=== PATIENT | female | born 1975 | race Caucasian/White ===

== ENCOUNTER 2017-08-17 03:19 | Emergency (ER) | payer SELFPAY ==
[2017-08-17] MEDS ORDERED: Pantoprazole 40 MG Vial IVPUSH ONE (03:37)
[2017-08-17] MEDS ORDERED: Alum Hydrox/Mag Hydrox/Simeth 15 ML, Metoclopramide 5 MG, Lidocaine 2% 5 ML PO ONE ×3 (03:37)
[2017-08-17] MEDS ORDERED: Sodium Chloride 0.9% 2.5 ML Syringe FLUSH PRN (03:37)
[2017-08-17] MEDS ORDERED: Sodium Chloride 0.9% 10 ML Syringe FLUSH PRN (03:37)
[2017-08-17] MEDS ORDERED: Ondansetron 4 MG/2 ML SDV IVPUSH ONE (03:54)
--- NOTE | 2017-08-17 04:04 | EDM.PDOC ---
ED HPI GENERAL MEDICAL PROBLEM - General Chief Complaint: Abdominal Pain Stated Complaint: ABDOMINAL PAIN RADIATING TO BACK Time Seen by Provider: 08/17/17 03:27 - History of Present Illness INITIAL COMMENTS - FREE TEXT/NARRATIVE: HISTORY AND PHYSICAL: History of present illness: The patient is a 42-year-old female with no significant GI cardiac or pulmonary history who presents after awakening while sleeping with epigastric pain which radiated to her back. The patient says she has never had anything like this before and is heart described but it's a boring pain that starts in her upper abdomen and does not localize right or left. It radiates to her back and when she woke up with the discomfort she had some diaphoresis and nausea but no vomiting. The patient says she did not eat anything new or different yesterday and did not take any GI meds for this discomfort prior to coming here. She did take one baby aspirin. The patient says she has no history of food intolerance and had a normal bowel movement yesterday that was not black or bloody and no diarrhea. She did not vomit this evening just had nausea. She has no specific chest pain or shortness of breath. Patient denies any recent history of alcohol use and did not eat incredibly rich diet recently. She has no significant Family history of cardiac disease and she does take control pills and is on her period currently and denies . The patient has no urinary complaints and no flank pain. The patient does have a history of ADHD and takes phentermine for that. Patient says she has a doctor back in [place] where she lives and she is only visiting here Review of systems: As per history of present illness and below otherwise all systems reviewed and negative. Past medical history: As per history of present illness and as reviewed below otherwise noncontributory. Surgical history: As per history of present illness and as reviewed below otherwise noncontributory. Social history: No reported history of drug or alcohol abuse. Family history: As per history of present illness and as reviewed below otherwise noncontributory. Physical exam: Gen.: Well-developed well-nourished female who is nontoxic and able to be up and around in the ED and move easily without discomfort. Vital signs are noted by me. HEENT: Atraumatic, normocephalic, negative for conjunctival pallor or scleral icterus, mucous membranes moist, throat clear, neck supple, nontender, trachea midline. Lungs: Clear to auscultation, breath sounds equal bilaterally, chest nontender. Heart: S1S2, regular rate and rhythm no overt murmurs Abdomen: Soft, nondistended, bowel sounds are normoactive and there is no tympany on percussion. There is mild to moderate tenderness on deep palpation in the epigastrium and right upper quadrant and only minimal tenderness in the left upper quadrant. There is no rebound or guarding Negative for masses or hepatosplenomegaly. Negative for costovertebral tenderness. Pelvis: Stable nontender. Genitourinary: Deferred. Rectal: Deferred. Extremities: Atraumatic, negative for cords or calf pain. Neurovascular unremarkable. Neuro: Awake, alert, oriented. Cranial nerves II through XII unremarkable. Cerebellum unremarkable. Motor and sensory unremarkable throughout. Exam nonfocal. Back: There is no midline back pain or specific flank pain on palpation. Skin: Normal turgor and there is no diaphoresis Diagnostics: EKG CBC CMP amylase lipase troponin H. pylori CT scan of the abdomen and pelvis Therapeutics: IV O2 monitor Protonix Zofran GI cocktail morphine All testing results were discussed with the patient and friend at bedside and the patient says the pain has slightly improved but is not significantly improved. I will go ahead and order a dose of morphine and perform a CT scan of the abdomen and pelvis as of this point the labs have not indicated any significant cause for the discomfort. CT scan results were discussed with the patient including the prominent findings of cholelithiasis as well as all incidental findings. Patient states that currently after the 2 mg morphine she has absolutely no pain and feels great. I've advised her to follow-up with her provider back in [place] when she returns home or one of our clinic providers as this gallbladder problem will return. She is aware of need to eat a low-fat diet. And I will give her prescription for tramadol to use as needed. Impression: Upper abdominal pain/epigastric pain, cholelithiasis with biliary colic improved Definitive disposition and diagnosis as appropriate pending reevaluation and review of above. upper abdominal Pain Score (Numeric/FACES): 9 - Related Data Allergies Allergy/AdvReac Type Severity Reaction Status Date / Time No Known Allergies Allergy Verified 08/17/17 03:27 Home Meds: Home Meds Phentermine 30 mg PO 08/17/17 [History] Past Medical History HEENT History: Reports: None Cardiovascular History: Reports: None Respiratory History: Reports: None Gastrointestinal History: Reports: None Genitourinary History: Reports: None [employer]ER History: Reports: None Musculoskeletal History: Reports: None Neurological History: Reports: None Psychiatric History: Reports: None Endocrine/Metabolic History: Reports: None Dermatologic History: Reports: None - Infectious Disease History Infectious Disease History: Reports: Chicken Pox - Past Surgical History Respiratory Surgical History: Reports: None Female Surgical History: Reports: None Social & Family History - Family History Family Medical History: Noncontributory - Tobacco Use Smoking Status *Q: Never Smoker - Recreational Drug Use Recreational Drug Use: No ED ROS GENERAL - Review of Systems Review Of Systems: ROS reveals no pertinent complaints other than HPI. ED EXAM, GENERAL - Physical Exam Exam: See Below (See dictation) Course - Vital Signs Last Recorded V/S: Last Vital Signs Temp 36.7 C 08/17/17 05:40 Pulse 69 08/17/17 05:40 Resp 15 08/17/17 05:40 BP 102/64 08/17/17 05:40 Pulse Ox 97 08/17/17 05:40 - Orders/Labs/Meds Orders: Active Orders 24 hr Category Date Time Status Cardiac Monitoring [RC] . DIRECTED Care 08/17/17 03:36 Active EKG Documentation Completion [RC] STAT Care 08/17/17 03:36 Active Oxygen Therapy, ED [RC] ASDIRECTED Care 08/17/17 03:36 Active Pulse Oximetry [RC] ASDIRECTED Care 08/17/17 03:37 Active Abdomen Pelvis w Cont [CT] Stat Exams 08/17/17 04:49 Taken Sodium Chloride 0.9% [Saline Flush] Med 08/17/17 03:37 Active 10 ml FLUSH ASDIRECTED PRN Sodium Chloride 0.9% [Saline Flush] Med 08/17/17 03:37 Active 2.5 ml FLUSH ASDIRECTED PRN Saline Lock Insert [OM.PC] Stat Oth 08/17/17 03:36 Ordered Medication Orders Sodium Chloride (Saline Flush) 10 ml FLUSH ASDIRECTED PRN PRN Reason: Keep Vein Open Sodium Chloride (Saline Flush) 2.5 ml FLUSH ASDIRECTED PRN PRN Reason: Keep Vein Open Labs: Laboratory Tests 08/17/17 08/17/17 08/17/17 Range/Units 03:52 03:52 03:52 WBC 8.36 (4.0-11.0) K/uL RBC 4.61 (4.30-5.90) M/uL Hgb 14.4 (12.0-16.0) g/dL Hct 42.1 (36.0-46.0) % MCV 91.3 (80.0-98.0) fL MCH 31.2 (27.0-32.0) pg MCHC 34.2 (31.0-37.0) g/dL RDW Std Deviation 46.5 (28.0-62.0) fl RDW Coeff of Jarred 14 (11.0-15.0) % Plt Count 255 (150-400) K/uL MPV 10.30 (7.40-12.00) fL Neut % (Auto) 42.1 L (48.0-80.0) % Lymph % (Auto) 48.6 H (16.0-40.0) % [place] % (Auto) 6.0 (0.0-15.0) % Eos % (Auto) 3.1 (0.0-7.0) % Baso % (Auto) 0.2 (0.0-1.5) % Neut # (Auto) 3.5 (1.4-5.7) K/uL Lymph # (Auto) 4.1 H (0.6-2.4) K/uL [place] # (Auto) 0.5 (0.0-0.8) K/uL Eos # (Auto) 0.3 (0.0-0.7) K/uL Baso # (Auto) 0.0 (0.0-0.1) K/uL Nucleated RBC % 0.0 /100WBC Nucleated RBCs # 0 K/uL Sodium 141 (136-145) mmol/L Potassium 3.7 (3.5-5.1) mmol/L Chloride 105 (98-107) mmol/L Carbon Dioxide 27.7 (21.0-32.0) mmol/L BUN 15 (7.0-18.0) mg/dL Creatinine 0.9 (0.6-1.0) mg/dL Est Cr Clr Drug Dosing 57.89 mL/min Estimated GFR (MDRD) > 60.0 ml/min Glucose 120 H (74-106) mg/dL Calcium 8.5 (8.5-10.1) mg/dL Total Bilirubin 0.3 (0.2-1.0) mg/dL AST 54 H (15-37) IU/L ALT 44 (14-63) IU/L Alkaline Phosphatase 58 (46-116) U/L Troponin I < 0.050 (0.000-0.056) ng/mL Total Protein 7.1 (6.4-8.2) g/dL Albumin 3.2 L (3.4-5.0) g/dL Globulin 3.9 H (2.0-3.5) g/dL Albumin/Globulin Ratio 0.8 L (1.3-2.8) Amylase 55 (25-115) U/L Lipase 104 (73-393) U/L H. pylori IgG Antibody NEGATIVE (NEG) Meds: Medications Generic Name Dose Route Start Last Admin Trade Name Lluvia PRN Reason Stop Dose Admin Sodium Chloride 10 ml 08/17/17 03:37 Saline Flush FLUSH ASDIRECTED PRN Keep Vein Open Sodium Chloride 2.5 ml 08/17/17 03:37 Saline Flush FLUSH ASDIRECTED PRN Keep Vein Open Discontinued Medications Generic Name Dose Route Start Last Admin Trade Name Lluvia PRN Reason Stop Dose Admin Al Hydroxide/Mg Hydroxide 15 0 ml 08/17/17 03:37 08/17/17 04:05 ml/ Metoclopramide HCl 5 mg/ PO 08/17/17 03:38 1 each Lidocaine HCl 5 ml ONETIME ONE Administration Iopamidol 100 ml 08/17/17 05:19 08/17/17 05:21 Isovue-370 (76%) IVPUSH 08/17/17 05:20 100 ml ONETIME STA Administration Morphine Sulfate 2 mg 08/17/17 04:49 08/17/17 04:57 Morphine IVPUSH 08/17/17 04:50 2 mg ONETIME ONE Administration Ondansetron HCl 4 mg 08/17/17 03:54 08/17/17 04:07 Zofran IVPUSH 08/17/17 03:55 4 mg ONETIME ONE Administration Pantoprazole Sodium 40 mg 08/17/17 03:37 08/17/17 04:08 Protonix Iv IVPUSH 08/17/17 03:38 40 mg NOW ONE Administration Departure - Departure Time of Disposition: 05:55 Disposition: Home, Self-Care 01 Condition: Good Clinical Impression: Biliary colic Cholelithiasis Qualifiers: Cholelithiasis location: gallbladder Cholecystitis presence: without cholecystitis Biliary obstruction: without biliary obstruction Qualified Code(s) : K80.20 - Calculus of gallbladder without cholecystitis without obstruction - Discharge Information Referrals: PCP,None [Primary Care Provider] - Forms: ED Department Discharge Additional Instructions: The following information is given to patients seen in the emergency department who are being discharged to home. This information is to outline your options for follow-up care. We provide all patients seen in our emergency department with a follow-up referral. The need for follow-up, as well as the timing and circumstances, are variable depending upon the specifics of your emergency department visit. If you don't have a primary care physician on staff, we will provide you with a referral. We always advise you to contact your personal physician following an emergency department visit to inform them of the circumstance of the visit and for follow-up with them and/or the need for any referrals to a consulting specialist. The emergency department will also refer you to a specialist when appropriate. This referral assures that you have the opportunity for followup care with a specialist. All of these measure are taken in an effort to provide you with optimal care, which includes your followup. Under all circumstances we always encourage you to contact your private physician who remains a resource for coordinating your care. When calling for followup care, please make the office aware that this follow-up is from your recent emergency room visit. If for any reason you are refused follow-up, please contact the [facility] emergency department at and ask to speak to the emergency department charge nurse. [facility] Primary care- Internal Medicine and Family [facility] [address] [place] [id number] [facility] Specialty Care-General Surgery Professional Building [address] [place] [id number] Please call and follow-up with your provider back: [place] over one of our clinic physicians in the next few days for reevaluation and further care of your gallbladder. Please eat a low-fat diet and push hydration. Please use pain medications as needed and prescribed and please try to take them only when you' re at home. Return to ER as needed and as discussed - My Orders Last 24 Hours: My Active Orders 08/17/17 03:36 Cardiac Monitoring [RC] . DIRECTED EKG Documentation Completion [RC] STAT Oxygen Therapy, ED [RC] ASDIRECTED Saline Lock Insert [OM.PC] Stat 08/17/17 03:37 Pulse Oximetry [RC] ASDIRECTED Sodium Chloride 0.9% [Saline Flush] 10 ml FLUSH ASDIRECTED PRN Sodium Chloride 0.9% [Saline Flush] 2.5 ml FLUSH ASDIRECTED PRN 08/17/17 04:49 Abdomen Pelvis w Cont [CT] Stat - Assessment/Plan Last 24 Hours: My Active Orders 08/17/17 03:36 Cardiac Monitoring [RC] . DIRECTED EKG Documentation Completion [RC] STAT Oxygen Therapy, ED [RC] ASDIRECTED Saline Lock Insert [OM.PC] Stat 08/17/17 03:37 Pulse Oximetry [RC] ASDIRECTED Sodium Chloride 0.9% [Saline Flush] 10 ml FLUSH ASDIRECTED PRN Sodium Chloride 0.9% [Saline Flush] 2.5 ml FLUSH ASDIRECTED PRN 08/17/17 04:49 Abdomen Pelvis w Cont [CT] Stat
[2017-08-17 04:26] LABS: CHLORIDE,CL 105 mmol/L (98-107); SODIUM,NA 141 mmol/L (136-145)
[2017-08-17] MEDS ORDERED: Morphine 2 MG/ML Syringe IVPUSH ONE (04:49)
[2017-08-17] MEDS ORDERED: Iopamidol 755 Mg/ML 100 ML Bottle IVPUSH STA (05:19)
--- NOTE | 2017-08-19 10:58 | CT ---
EXAM DATE: 08/17/17 PATIENT'S AGE: 42 Patient: SHANELL DE SOUZA Facility: [place], [place] Site . Site : 1975 Study: CT Abdomen/Pelvis WITH [id number] 5:21:57 AM Ordering Physician: Shea Leavitt Final Report: INDICATION: General abd pain TECHNIQUE: CT abdomen and pelvis acquired with IV contrast. COMPARISON: None FINDINGS: Lower chest: Unremarkable. Liver: Unremarkable. Spleen: Unremarkable. Pancreas: Unremarkable. Gallbladder and bile ducts: Cholelithiasis. Mild prominence of the central intrahepatic biliary system. . Kidneys: Unremarkable. Adrenal glands: Incompletely evaluated heterogeneous 1.3 x 1 cm structure within the left adrenal gland. GI tract: Moderate amount of stool. Colonic diverticulosis with no evidence of acute diverticulitis. Appendix is normal. Vascular structures: Negative. No sign of aneurysm. Lymph nodes: Unremarkable. Miscellaneous: Small periumbilical hernia. No free air or significant free fluid. Pelvic Organs: Heterogeneous macro lobulated enlarged uterus consistent with fibroid uterus. Bones: Unremarkable for age. IMPRESSION: 1. Cholelithiasis with mild prominence of the central intrahepatic biliary system. 2. Colonic diverticulosis with no evidence of acute diverticulitis. Moderate amount of stool. 3. Incompletely evaluated 1.3 cm structure within the left adrenal gland. 4. Fibroid uterus. Dictated by Rafael Loredo MD @ 08/17/2017 5:31:48 AM Dictated by: Rafael Loredo MD @ 08/17/2017 05:32:07 (Electronic Signature) Report Signed by Proxy. [facility] HOSPITAL[facility]ando
== END 2017-08-17 06:13 | disposition home or self-care (01) ==
LOC: MW.ED 03:19
DX: K80.70 Calculus of gallbladder and bile duct without cholecystitis without obstruction (principal); F90.9 Attention-deficit hyperactivity disorder, unspecified type; Z79.899 Other long term (current) drug therapy
CPT/HCPCS: 74177; 80053; 82150; 83690; 84484; 85025; 86677; 93005; 96374; 96375; 99285; A9270; C9113; J2270; J2405; Q9967; 99284

== ENCOUNTER 2018-09-02 08:15 | Emergency (ER) | payer MEDICAID ==
--- NOTE | 2018-09-02 08:45 | EDM.PDOC ---
ED HPI GENERAL MEDICAL PROBLEM - General Chief Complaint: ENT Problem Stated Complaint: SORE THROAT Time Seen by Provider: 09/02/18 08:39 - History of Present Illness INITIAL COMMENTS - FREE TEXT/NARRATIVE: HISTORY AND PHYSICAL: History of present illness: Patient 43-year-old white female sensory concern of sore throat and right ear pain she's had no fever chills nausea vomiting she has had some intermittent headaches. She denies headache at this time Review of systems: As per history of present illness and below otherwise all systems reviewed and negative. Past medical history: As per history of present illness and as reviewed below otherwise noncontributory. Surgical history: As per history of present illness and as reviewed below otherwise noncontributory. Social history: No reported history of drug or alcohol abuse. Family history: As per history of present illness and as reviewed below otherwise noncontributory. Physical exam: HEENT: Atraumatic, normocephalic, pupils reactive, negative for conjunctival pallor or scleral icterus, mucous membranes moist, throat clear, neck supple, nontender, trachea midline. TM clear bilateral Lungs: Clear to auscultation, breath sounds equal bilaterally, chest nontender. Heart: S1S2, regular, negative for clicks, rubs, or JVD. Abdomen: Soft, nondistended, nontender. Negative for masses or hepatosplenomegaly. Negative for costovertebral tenderness. Pelvis: Stable nontender. Genitourinary: Deferred. Rectal: Deferred. Extremities: Atraumatic, negative for cords or calf pain. Neurovascular unremarkable. Neuro: Awake, alert, oriented. Cranial nerves II through XII unremarkable. Cerebellum unremarkable. Motor and sensory unremarkable throughout. Exam nonfocal. Diagnostics: CBC CMP rapid strep Therapeutics: None Impression: #1 right otalgia #2 pharyngitis Definitive disposition and diagnosis as appropriate pending reevaluation and review of above. - Related Data Allergies Allergy/AdvReac Type Severity Reaction Status Date / Time No Known Allergies Allergy Verified 09/02/18 08:49 Home Meds: Home Meds Phentermine HCl 37.5 mg PO DAILY 09/02/18 [History] buPROPion [Wellbutrin SR] 100 mg PO BID 09/02/18 [History] Past Medical History HEENT History: Reports: None Cardiovascular History: Reports: None Respiratory History: Reports: None Gastrointestinal History: Reports: None Genitourinary History: Reports: None TRAFFIC RECORDER History: Reports: None Musculoskeletal History: Reports: None Neurological History: Reports: None Psychiatric History: Reports: None Endocrine/Metabolic History: Reports: None Dermatologic History: Reports: None - Infectious Disease History Infectious Disease History: Reports: Chicken Pox - Past Surgical History Respiratory Surgical History: Reports: None Female Surgical History: Reports: None Social & Family History - Family History Family Medical History: Noncontributory ED ROS GENERAL - Review of Systems Review Of Systems: ROS reveals no pertinent complaints other than HPI. ED EXAM, GENERAL - Physical Exam Exam: See Below (See dictation) Course - Vital Signs Last Recorded V/S: Last Vital Signs Temp 36.8 C 09/02/18 08:45 Pulse 93 09/02/18 08:45 Resp 18 09/02/18 08:45 BP 153/86 H 09/02/18 08:45 Pulse Ox 98 09/02/18 08:45 - Orders/Labs/Meds Orders: Active Orders 24 hr Category Date Time Status CULTURE STREP A CONFIRMATION [RM] Stat Lab 09/02/18 09:00 Results STREP SCRN A RAPID W CULT CONF [RM] Stat Lab 09/02/18 09:00 Results Labs: Laboratory Tests 09/02/18 09/02/18 Range/Units 08:55 08:55 WBC 4.89 (4.0-11.0) K/uL RBC 4.07 L (4.30-5.90) M/uL Hgb 13.6 (12.0-16.0) g/dL Hct 38.9 (36.0-46.0) % MCV 95.6 (80.0-98.0) fL MCH 33.4 H (27.0-32.0) pg MCHC 35.0 (31.0-37.0) g/dL RDW Std Deviation 46.1 (28.0-62.0) fl RDW Coeff of Jarred 13 (11.0-15.0) % Plt Count 212 (150-400) K/uL MPV 10.10 (7.40-12.00) fL Neut % (Auto) 58.0 (48.0-80.0) % Lymph % (Auto) 32.1 (16.0-40.0) % [place] % (Auto) 7.0 (0.0-15.0) % Eos % (Auto) 2.5 (0.0-7.0) % Baso % (Auto) 0.4 (0.0-1.5) % Neut # (Auto) 2.8 (1.4-5.7) K/uL Lymph # (Auto) 1.6 (0.6-2.4) K/uL [place] # (Auto) 0.3 (0.0-0.8) K/uL Eos # (Auto) 0.1 (0.0-0.7) K/uL Baso # (Auto) 0.0 (0.0-0.1) K/uL Nucleated RBC % 0.0 /100WBC Nucleated RBCs # 0 K/uL Sodium 138 (136-145) mmol/L Potassium 4.1 (3.5-5.1) mmol/L Chloride 104 (98-107) mmol/L Carbon Dioxide 24.1 (21.0-32.0) mmol/L BUN 14 (7.0-18.0) mg/dL Creatinine 0.9 (0.6-1.0) mg/dL Est Cr Clr Drug Dosing 57.30 mL/min Estimated GFR (MDRD) > 60.0 ml/min Glucose 114 H (74-106) mg/dL Calcium 8.3 L (8.5-10.1) mg/dL Total Bilirubin 0.5 (0.2-1.0) mg/dL AST 15 (15-37) IU/L ALT 30 (14-63) IU/L Alkaline Phosphatase 68 (46-116) U/L Total Protein 7.1 (6.4-8.2) g/dL Albumin 3.3 L (3.4-5.0) g/dL Globulin 3.8 (2.6-4.0) g/dL Albumin/Globulin Ratio 0.9 (0.9-1.6) Departure - Departure Time of Disposition: 10:11 Disposition: Home, Self-Care 01 Condition: Good Clinical Impression: Otalgia, Encounter for medical screening examination - Discharge Information Referrals: PCP,Not In Area [Primary Care Provider] - Forms: ED Department Discharge Additional Instructions: The following information is given to patients seen in the emergency department who are being discharged to home. This information is to outline your options for follow-up care. We provide all patients seen in our emergency department with a follow-up referral. The need for follow-up, as well as the timing and circumstances, are variable depending upon the specifics of your emergency department visit. If you don't have a primary care physician on staff, we will provide you with a referral. We always advise you to contact your personal physician following an emergency department visit to inform them of the circumstance of the visit and for follow-up with them and/or the need for any referrals to a consulting specialist. The emergency department will also refer you to a specialist when appropriate. This referral assures that you have the opportunity for followup care with a specialist. All of these measure are taken in an effort to provide you with optimal care, which includes your followup. Under all circumstances we always encourage you to contact your private physician who remains a resource for coordinating your care. When calling for followup care, please make the office aware that this follow-up is from your recent emergency room visit. If for any reason you are refused follow-up, please contact the [facility] emergency department at and asked to speak to the emergency department charge nurse. [facility] Specialty Care - Neurology Professional Building [address] [place] [address], [address] [place] [address] [facility] Primary [facility] [address] [place] [phone] Follow-up primary care and neurology call to schedule routine appointments Motrin/Tylenol as directed return as needed as discussed - My Orders Last 24 Hours: My Active Orders 09/02/18 09:00 CULTURE STREP A CONFIRMATION [RM] Stat STREP SCRN A RAPID W CULT CONF [] Stat - Assessment/Plan Last 24 Hours: My Active Orders 09/02/18 09:00 CULTURE STREP A CONFIRMATION [RM] Stat STREP SCRN A RAPID W CULT CONF [] Stat
[2018-09-02 09:44] LABS: CHLORIDE,CL 104 mmol/L (98-107); SODIUM,NA 138 mmol/L (136-145)
== END 2018-09-02 10:20 | disposition home or self-care (01) ==
LOC: MW.ED 08:15
DX: J02.9 Acute pharyngitis, unspecified (principal); H92.01 Otalgia, right ear; Z79.899 Other long term (current) drug therapy
CPT/HCPCS: 36415; 80053; 85025; 87081; 87880-QW; 99283